=== PATIENT | male | born 1940 | race Caucasian/White ===

== ENCOUNTER → 2016-11-26 | Outpatient (CLI) | payer MEDICARE, BC ==
[~2016-11-26] MED LIST: ASPI-496 PO; CALC-451 PO; CINN500C2 PO; GARL2000 PO; LISI2.5T PO; METF500T4 PO; NPH,100V4 SQ-INSULIN; OMEG500C3 PO; OMEP40CA6 PO; POTA99TA14 PO; REGADENOSON 0.4 MG/5 ML SYRINGE ONE; SIMV40TA3 PO; VITA400C14 PO
== END | disposition home or self-care (01) ==
LOC: CFH 07:12
PROVIDERS: ATTEND Internal Medicine Cardiovascular Disease
DX: I25.10 Atherosclerotic heart disease of native coronary artery without angina pectoris (principal); I10 Essential (primary) hypertension; E11.9 Type 2 diabetes mellitus without complications; Z95.1 Presence of aortocoronary bypass graft
CPT/HCPCS: 78452; 93017; A9502; J2785

== ENCOUNTER → 2017-06-02 | Outpatient (CLI) | payer MEDICARE, BC ==
[~2017-06-02] MED LIST changes: -NPH,100V4 SQ-INSULIN; +NPH,100V5 SQ-INSULIN; -REGADENOSON 0.4 MG/5 ML SYRINGE ONE
[2017-06-02 08:42] LABS: ASPARTATE AMINO TRANSFERASE 19 U/L (15-37); BLOOD UREA NITROGEN 18 mg/dL (7-18)
== END | disposition home or self-care (01) ==
LOC: LAB 08:16
PROVIDERS: ATTEND Internal Medicine Cardiovascular Disease
DX: I10 Essential (primary) hypertension (principal); I25.10 Atherosclerotic heart disease of native coronary artery without angina pectoris; E78.2 Mixed hyperlipidemia; R00.1 Bradycardia, unspecified
CPT/HCPCS: 36415; 80053; 80061

== ENCOUNTER 2018-02-02 02:47 | Inpatient (IN) | payer MEDICARE, BC ==
[~2018-02-02] VITALS: Ht 185.4 cm; Wt 92.2 kg
[~2018-02-02 02:47] MED LIST changes: -METF500T4 PO; +METF500T5 PO
[2018-02-02] MEDS ORDERED: SODIUM CHLORIDE 0.9% 1,000 ML IV ONE (02:50)
[2018-02-02] MEDS ORDERED: SODIUM CHLORIDE FLUSH 10ML SYR IVF ONE (03:00)
[2018-02-02 03:04] LABS: BASOPHILS # (AUTO) 0.02 x10^3/uL (0-0.1); BASOPHILS % (AUTO) 0 % (0-1); EOSINOPHILS # (AUTO) 0.02 x10^3/uL (0-0.4); EOSINOPHILS % (AUTO) 0 % (1-7); LYMPHOCYTES # (AUTO) 0.75 x10^3/uL (1-3.4); LYMPHOCYTES % (AUTO) 11 % (22-44); MD NO; MEAN CORPUSCULAR HEMOGLOBIN 32.7 pg (27.5-34.5); MEAN CORPUSCULAR VOLUME 96.3 fL (81-97); MEAN PLATELET VOLUME 9.3 fL (7.4-10.4); MONOCYTES # (AUTO) 0.91 x10^3/uL (0.2-0.8); MONOCYTES % (AUTO) 14 % (2-9); NEUTROPHILS # (AUTO) 5.06 x10^3/uL (1.8-6.8); NEUTROPHILS % (AUTO) 75 % (42-75); PLATELET COUNT 114 x10^3/uL (130-400); RED BLOOD COUNT 4.04 x10^6/uL (4.38-5.82); RED CELL DISTRIBUTION WIDTH 13.4 % (9.4-14.8)
[2018-02-02 03:08] LABS: CHLORIDE 110 mmol/L (98-107)
[2018-02-02 03:11] LABS: INTERNATIONAL NORMALIZED RATIO 1.23 (0.93-1.1); PROTHROMBIN TIME 12.6 Seconds (9.6-11.5)
[2018-02-02] MEDS ORDERED: TAMS-11 PO (03:11)
[2018-02-02] MEDS ORDERED: OMEP20TA62 PO (03:11)
[2018-02-02] MEDS ORDERED: FLUD0.1T PO (03:11)
[2018-02-02] MEDS ORDERED: METF500T5 PO (03:11)
[2018-02-02 03:15] LABS: ALANINE AMINOTRANSFERASE 31 U/L (12-78); ALBUMIN 2.7 g/dL (3.4-5.0); ANION GAP 5 mmol/L (5-15); CALCIUM 7.4 mg/dL (8.5-10.1)
[2018-02-02 03:24] LABS: ALKALINE PHOSPHATASE 47 U/L (45-117); BILIRUBIN,TOTAL 0.5 mg/dL (0.2-1.0); TOTAL PROTEIN 5.3 g/dL (6.4-8.2); TROPONIN I < 0.015 ng/mL (0.000-0.045)
[2018-02-02] MEDS ORDERED: OMNIPAQUE 350 MG/ML, 100ML BOTTLE ONE (05:09)
[2018-02-02] MEDS ORDERED: SODIUM CHLORIDE 0.9% 1,000 ML IV SCH (05:10)
[2018-02-02 05:30] VITALS: BP 96/50
[2018-02-02] MEDS ORDERED: ONDANSETRON 2MG/ML, 2ML IVPush PRN (05:30)
[2018-02-02] MEDS ORDERED: POLYETHYLENE GLYCOL 17 GM PACKET PO PRN (05:30)
[2018-02-02] MEDS ORDERED: ACETAMINOPHEN 325 MG TABLET PO PRN (05:30)
[2018-02-02] MEDS ORDERED: hydrALAzine 20 MG/ML, 1ML IVPush PRN (05:30)
[2018-02-02] MEDS ORDERED: ENOXAPARIN 40 MG/0.4 ML SQ SCH (05:30)
[2018-02-02 08:26] VITALS: BP 100/59
[2018-02-02] MEDS ORDERED: metFORMIN 500 MG TABLET PO SCH (09:00)
[2018-02-02] MEDS ORDERED: OMEPRAZOLE 20 MG CAPSULE.DR PO SCH (09:00)
[2018-02-02] MEDS ORDERED: TAMSULOSIN 0.4 MG CAP.ER.24H PO SCH (09:00)
[2018-02-02] MEDS ORDERED: ASPIRIN 81 MG TABLET EC PO SCH (09:30)
[2018-02-02] MEDS ORDERED: OMEGA-3/FISH OIL CAPSULE PO SCH (09:30)
[2018-02-02] MEDS ORDERED: CALCIUM/VITAMIN D3 250-125 TABLET PO SCH (09:30)
[2018-02-02 11:43] LABS: CLOSTRIDIUM DIFFICILE ANTIGEN NEGATIVE; CLOSTRIDIUM DIFFICILE TOXIN NEGATIVE (Negative)
[2018-02-02 13:11] VITALS: BP 103/62
[2018-02-02] MEDS ORDERED: INSULIN NPH HUMAN 100 UNIT/ML, 3ML VIAL SQ-INSULIN SCH (21:00)
[2018-02-02] MEDS ORDERED: SIMVASTATIN 40 MG TABLET PO SCH (21:00)
[2018-02-03] MEDS ORDERED: POTASSIUM GLUCONATE 595 MG PO SCH (09:00)
== END 2018-02-02 18:28 | disposition home or self-care (01) | DRG 865 ==
LOC: ED 05:01 → SUATTDRO 05:10 → EDIP 05:14 → 4EST 05:24
PROVIDERS: ADMIT Hospitalist; ATTEND Hospitalist
DX: B34.9 Viral infection, unspecified (principal); E43 Unspecified severe protein-calorie malnutrition; R19.7 Diarrhea, unspecified; E86.0 Dehydration; E78.5 Hyperlipidemia, unspecified; E11.9 Type 2 diabetes mellitus without complications; R09.02 Hypoxemia; E86.9 Volume depletion, unspecified; I25.10 Atherosclerotic heart disease of native coronary artery without angina pectoris; K21.9 Gastro-esophageal reflux disease without esophagitis; N40.0 Benign prostatic hyperplasia without lower urinary tract symptoms; G62.9 Polyneuropathy, unspecified; R79.89 Other specified abnormal findings of blood chemistry; Z87.891 Personal history of nicotine dependence; Z95.1 Presence of aortocoronary bypass graft; Z90.49 Acquired absence of other specified parts of digestive tract
CPT/HCPCS: 36415; 71275; 80053; 83880; 84484; 85025; 85610; 85730; 87324; 93005; 93306; 96360; 96361; J1650; Q9967; J7030

== ENCOUNTER → 2020-02-28 | Outpatient (CLI) | payer MEDICARE, BC ==
[~2020-02-28] MED LIST changes: +FLUD0.1T PO; +METF500T17 PO; -METF500T5 PO; +OMEP20TA62 PO; +OMEP40CA42 PO; -OMEP40CA6 PO; +SIMV40TA20 PO; -SIMV40TA3 PO; +TAMS-11 PO
== END | disposition home or self-care (01) ==
LOC: CFH 07:35
PROVIDERS: ATTEND Internal Medicine Cardiovascular Disease
DX: I08.8 Other rheumatic multiple valve diseases (principal); I25.10 Atherosclerotic heart disease of native coronary artery without angina pectoris; E78.5 Hyperlipidemia, unspecified; E11.9 Type 2 diabetes mellitus without complications; Z87.891 Personal history of nicotine dependence
CPT/HCPCS: 78452; 93017; 93306; A9502

== ENCOUNTER 2020-09-18 11:04 | Day surgery (SDC) | payer MEDICARE, BC ==
[~2020-09-18] VITALS: Ht 188 cm; Wt 88.0 kg
[2020-09-18] MEDS ORDERED: SODIUM CHLORIDE 0.9% 1,000 ML IV SCH ×2 (11:30→13:30)
[2020-09-18] MEDS ORDERED: ASPIRIN 325 MG TABLET EC PO ONE (11:30)
[2020-09-18] MEDS ORDERED: TICAGRELOR 90 MG TABLET ONE (11:56)
[2020-09-18] MEDS ORDERED: FENTANYL PF 100 MCG/2ML ONE (11:56)
[2020-09-18] MEDS ORDERED: MIDAZOLAM 1 MG/ML, 5ML ONE (11:56)
[2020-09-18] MEDS ORDERED: BIVALIRUDIN 250 MG ONE (11:57)
[2020-09-18] MEDS ORDERED: HEPARIN 1,000 UNITS/ML, 10ML ONE (11:57)
[2020-09-18] MEDS ORDERED: LIDOCAINE-MPF 1%, 5ML ONE (11:57)
[2020-09-18] MEDS ORDERED: VERAPAMIL 2.5 MG/ML, 2ML ONE (11:57)
[2020-09-18] MEDS ORDERED: PLEASE ENTER HEIGHT AND WEIGHT MC SCH (12:00)
[2020-09-18 12:16] LABS: ANION GAP 5 mmol/L (5-15); BASOPHILS % (AUTO) 1 % (0-1); CALCIUM 9.3 mg/dL (8.5-10.1); CHLORIDE 112 mmol/L (98-107); CREATININE 0.76 mg/dL (0.7-1.3); EOSINOPHILS % (AUTO) 6 % (1-7); LYMPHOCYTES % (AUTO) 24 % (22-44); MEAN CORPUSCULAR HEMOGLOBIN 32.3 pg (27.5-34.5); MEAN CORPUSCULAR HGB CONC 33.7 g/dL (33.2-36.2); MEAN PLATELET VOLUME 9.7 fL (7.4-10.4); MONOCYTES % (AUTO) 11 % (2-9); NEUTROPHILS % (AUTO) 57 % (42-75); PLATELET COUNT 137 x10^3/uL (130-400); RED BLOOD COUNT 4.56 x10^6/uL (4.38-5.82); RED CELL DISTRIBUTION WIDTH 13.2 % (9.4-14.8)
[2020-09-18 12:18] LABS: MD NO
[2020-09-18] MEDS ORDERED: LIDOCAINE 2%, 20ML ONE (12:37)
== END 2020-09-18 16:20 | disposition home or self-care (01) ==
LOC: CACL 11:04
PROVIDERS: ATTEND Internal Medicine Cardiovascular Disease
DX: I25.110 Atherosclerotic heart disease of native coronary artery with unstable angina pectoris (principal); Z53.29 Procedure and treatment not carried out because of patient's decision for other reasons; I25.82 Chronic total occlusion of coronary artery; I10 Essential (primary) hypertension; E78.5 Hyperlipidemia, unspecified; E11.9 Type 2 diabetes mellitus without complications; Z79.4 Long term (current) use of insulin; Z79.82 Long term (current) use of aspirin; Z79.890 Hormone replacement therapy; Z79.891 Long term (current) use of opiate analgesic; Z79.899 Other long term (current) drug therapy; Z87.891 Personal history of nicotine dependence
CPT/HCPCS: 36415; 80048; 85025; 93459; 99156; 99157; C1760; C1769; C1894; J1644; J2250; J3010; Q9967; J0583